=== PATIENT | female | born 2000 | race Two or more races ===

== ENCOUNTER 2019-12-27 18:30 | Emergency (ER) | payer SELFPAY ==
[~2019-12-27] VITALS: Ht 154.9 cm; Wt 63.5 kg
[2019-12-27 20:23] LABS: Basophils # (auto) 0 uL; Basophils % (auto) 0.2 % (0.0-2.0); Eosinophils # (auto) 0.2 uL; Eosinophils % (auto) 2.4 % (0.0-7.0); Hematocrit 37.2 % (36.0-46.0); Hemoglobin 12.9 g/dL (12.2-16.2); Lymphocytes # (auto) 2.6 uL; Lymphocytes % (auto) 39.7 % (10.0-50.0); Mean Corpuscular Hemoglobin 28.8 pg (28.0-32.0); Mean Corpuscular Hgb Conc. 34.7 g/dL (32.0-36.0); Mean Corpuscular Volume 83.1 fL (80.0-100.0); Monocytes # (auto) 0.6 uL; Monocytes % (auto) 9.2 % (0.0-12.0); Neutrophils # (auto) 3.2 uL; Neutrophils % (auto) 48.5 % (37.0-80.0); Platelet Count (auto) 207 10^3/uL (140-450); Red Blood Cells 4.48 10^6/uL (4.0-5.20); Red Cell Distribution Width 12.4 % (11.8-14.3); White Blood Cell 6.7 10^3/uL (4.4-10.8)
[2019-12-27 20:39] LABS: Albumin 3.7 g/dL (3.4-5.0); Calcium 8.4 mg/dL (8.5-10.1); Potassium 3.6 mmol/L (3.5-5.1)
[2019-12-27 20:42] LABS: BUN/Creatinine Ratio 25.5; Bilirubin, Total 0.2 mg/dL (0.2-1.0); Total Protein 7.7 g/dL (6.4-8.2)
[2019-12-28 00:14] VITALS: BP 110/63
== END 2019-12-28 01:03 | disposition home or self-care (01) ==
LOC: ER 18:30
DX: M54.12 Radiculopathy, cervical region (principal)
CPT/HCPCS: 36415; 72125; 80053; 84702; 85025; 93005